=== PATIENT | female | born 1955 | race Caucasian/White ===

== ENCOUNTER 2022-04-16 19:28 | Emergency (ER) | payer MEDICARE, OTHER ==
[~2022-04-16] VITALS: Ht 168 cm; Wt 103.4 kg
--- NOTE | 2022-04-16 19:47 | ED Fall/Injury ---
General Chief Complaint: Trauma-Non Activation Stated Complaint: FALL Source: patient Exam Limitations: no limitations History of Present Illness Date Seen by Provider: Apr 16, 2022 Time Seen by Provider: 19:46 Initial Comments To ER by EMS from her daughter's house where she is staying with reports of a fall. She just arrived here into town yesterday to visit her daughter. She is from [place]. Tetanus is up-to-date. She was going down her daughters steps when she grabbed for a pole for stability and ended up falling. She has some swelling to the posterior right elbow, laceration of the back of the head and some right shoulder pain. Occurred: just prior to arrival, yesterday Severity: moderate Loss of Consciousness: no loss of consciousness Associated Symptoms (Fall): Denies Symptoms Allergies and Home Medications Allergies Coded Allergies: Penicillins (Verified Allergy, Unknown, 04/16/22) Patient Home Medication List Home Medication List Reviewed: Yes Review of Systems Review of Systems Constitutional: see HPI Eyes: No Symptoms Reported Ears, Nose, Mouth, Throat: no symptoms reported Respiratory: no symptoms reported Cardiovascular: no symptoms reported Genitourinary: no symptoms reported Musculoskeletal: see HPI Skin: no symptoms reported Psychiatric/Neurological: No Symptoms Reported Physical Exam Vital Signs Vital Signs - First Documented 04/16/22 19:28 Temp 37.0 Pulse 88 Resp 22 B/P (MAP) 163/69 (100) Pulse Ox 98 Capillary Refill : Height, Weight, BMI Height: '" Weight: lbs. oz. kg; BMI Method: General Appearance: WD/WN, no apparent distress, other (Heart and oriented GCS 15 very pleasant) HEENT: PERRL/EOMI, normal ENT inspection, other (no mijares sign no hemotympanum there is a laceration mid occipital scalp.) Neck: non-tender, full range of motion Cardiovascular: regular rate, rhythm, no murmur Respiratory: normal breath sounds, no respiratory distress, no accessory muscle use Gastrointestinal: normal bowel sounds, non tender Extremities: normal range of motion, non-tender, other (Large hematoma over the dorsal right elbow however despite this she has normal supination and pronation flexion and extension.) Neurologic/Psychiatric: alert, normal mood/affect Skin: normal color, warm/dry [place] Coma Score Best Eye Response: (4) Open Spontaneously Best Verbal Response: (5) Oriented Best Motor Response: (6) Obeys Commands [place] Total: 15 Progress/Results/Core Measures Results/Orders My Orders Orders - STACIE WEST APRN Ct Head/Cervical Spine Wo (04/16/22 19:38) Elbow, Right, 3 Views (04/16/22 19:38) Shoulder, Right, 3 Views (04/16/22 19:47) Vital Signs/I&O 04/16/22 04/16/22 19:28 21:15 Temp 37.0 Pulse 88 77 Resp 22 B/P (MAP) 163/69 (100) 160/75 Pulse Ox 98 96 Departure Communication (Admissions) NAME: MALLY BAEZ [facility] REC#: [id number] PT STATUS: REG ER : 1955 PHYSICIAN: STACIE WEST APRN ADMIT DATE: 04/16/22/ER Draft Date of Exam:04/16/22 CT HEAD/CERVICAL SPINE WO Clinical indication: Patient fell and hit head. Exam: Head CT without IV contrast with sagittal and coronal reformations. Axial CT scan of the cervical spine with sagittal and coronal reformations. Auto Exposure Controls were utilized during the CT exam to meet ALARA standards for radiation dose reduction. Comparison: None. Findings: Head CT: There is no evidence of acute cerebral infarct, intracranial hemorrhage, or gross mass effect. The brain parenchymal volume appears appropriate for patient's age. There is normal lezama-white matter distinction. There is no significant midline shift or herniation. There is no evidence of hydrocephalus. The basal cisterns are unremarkable. There is a small to moderate size area of extracranial soft tissue swelling involving the right posterior aspect of the head. There is no skull fracture. Skull, extracranial soft tissue, and orbits are unremarkable. The paranasal sinuses are unremarkable. Temporal bones show no significant abnormality. CT cervical spine: There is no acute cervical spine fracture. There is loss of cervical lordosis. There are hypertrophic spurs involving the cervical spine most pronounced at the C4-C5 level. Heterogeneous multinodular thyroid gland is noted. Impression: 1: There is no evidence of intracranial hemorrhage. There is extracranial soft tissue swelling involving the right posterior aspect of the head. There is no skull fracture. 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 3: Heterogeneous and prominent thyroid gland is noted. Nonemergent thyroid ultrasound would better evaluate. Dictated on workstation # [id number] Dict: 04/16/222036 Trans: 04/16/222048 [facility] [id number] Interpreted by: JENI PRECIADO MD Electronically signed by: Impression Primary Impression: Traumatic hematoma of right elbow Additional Impressions: Scalp laceration Fall at home Disposition: HOME, SELF-CARE Condition: Stable Departure-Patient Inst. Decision time for Depature: 20:55 Referrals: NO,LOCAL PHYSICIAN (PCP/Family) Primary Care Physician Patient Instructions: NO INSTRUCTIONS GIVEN Add. Discharge Instructions: All discharge instructions reviewed with patient and/or family. Voiced understanding. Images Torso/Trunk 1 - Tenderness STACIE WEST [facility] TE[employer] Apr 16, 2022 19:47
--- NOTE | 2022-04-16 20:45 | Diagnostic Imaging Report ---
CLINICAL INDICATION: Patient fell, has elbow pain. EXAM: X-ray of the right elbow, 3 views. COMPARISON: None. FINDINGS: There is no acute fracture or dislocation. There is no elbow effusion. There are degenerative spurs involving the lateral distal humeral epicondylar region. There is soft tissue swelling seen dorsal to the proximal ulna region. IMPRESSION: There is no acute fracture or dislocation. Dictated by: Dictated on workstation # [id number]
--- NOTE | 2022-04-16 20:46 | Diagnostic Imaging Report ---
CLINICAL INDICATION: Patient fell backwards and hit her head. Patient has pain in the right shoulder and scapula. EXAM: X-ray of the right shoulder, 3 views. COMPARISON: None. FINDINGS: There is no acute fracture or dislocation. There are hypertrophic spurs involving the right acromioclavicular region. Scapula shows no fracture. IMPRESSION: There is no acute fracture or dislocation. Dictated by: Dictated on workstation # [id number]
--- NOTE | 2022-04-16 20:49 | Diagnostic Imaging Report ---
Clinical indication: Patient fell and hit head. Exam: Head CT without IV contrast with sagittal and coronal reformations. Axial CT scan of the cervical spine with sagittal and coronal reformations. Auto Exposure Controls were utilized during the CT exam to meet ALARA standards for radiation dose reduction. Comparison: None. Findings: Head CT: There is no evidence of acute cerebral infarct, intracranial hemorrhage, or gross mass effect. The brain parenchymal volume appears appropriate for patient's age. There is normal lezama-white matter distinction. There is no significant midline shift or herniation. There is no evidence of hydrocephalus. The basal cisterns are unremarkable. There is a small to moderate size area of extracranial soft tissue swelling involving the right posterior aspect of the head. There is no skull fracture. Skull, extracranial soft tissue, and orbits are unremarkable. The paranasal sinuses are unremarkable. Temporal bones show no significant abnormality. CT cervical spine: There is no acute cervical spine fracture. There is loss of cervical lordosis. There are hypertrophic spurs involving the cervical spine most pronounced at the C4-C5 level. Heterogeneous multinodular thyroid gland is noted. Impression: 1: There is no evidence of intracranial hemorrhage. There is extracranial soft tissue swelling involving the right posterior aspect of the head. There is no skull fracture. 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 3: Heterogeneous and prominent thyroid gland is noted. Nonemergent thyroid ultrasound would better evaluate. Dictated by: Dictated on workstation # [id number]
[2022-04-16 21:15] VITALS: BP 160/75
== END 2022-04-16 21:21 | disposition home or self-care (01) ==
LOC: ER 19:35
DX: S01.01XA Laceration without foreign body of scalp, initial encounter (principal); S50.01XA Contusion of right elbow, initial encounter; W18.30XA Fall on same level, unspecified, initial encounter; Y92.009 Unspecified place in unspecified non-institutional (private) residence as the place of occurrence of the external cause
CPT/HCPCS: 70450; 72125; 73030; 73080